=== PATIENT | male | born 1965 | race Caucasian/White ===

== ENCOUNTER 2017-09-30 19:01 | Emergency (ER) | payer OTHER ==
[2017-09-30] MEDS ORDERED: Ketorolac Tromethamine 30 MG/ML VIAL ONE (20:44)
[2017-09-30] MEDS ORDERED: predniSONE 20 MG TAB ONE (20:49)
== END 2017-09-30 21:15 | disposition home or self-care (01) ==
LOC: ERS 19:01
DX: K02.9 Dental caries, unspecified (principal); J44.9 Chronic obstructive pulmonary disease, unspecified; I10 Essential (primary) hypertension; G40.909 Epilepsy, unspecified, not intractable, without status epilepticus; F17.210 Nicotine dependence, cigarettes, uncomplicated; Z79.899 Other long term (current) drug therapy
CPT/HCPCS: 96372; 99406; J1885; J7506

== ENCOUNTER 2018-01-26 11:37 | Emergency (ER) | payer OTHER ==
--- NOTE | 2018-01-26 12:18 | RAD ---
PORTABLE CHEST 1 VIEW: Date: 01/26/18 Time: 1211 hours HISTORY: Chest pain. FINDINGS: Comparison made with exam of 08/27/17. The heart size is normal. The lungs are well expanded without focal areas of consolidation, pneumotho rax, or pleural effusions. IMPRESSION: No radiographic evidence of acute cardiopulmonary process. POS: [facility]
[2018-01-26 12:20] LABS: #Eosinphils 0.1 thou/uL (0.0-0.7); #Lymphocytes 1.2 thou/uL (1.20-3.40); #Monocytes 0.5 thou/uL (0.11-0.59); #Neutrophils 6.1 thou/uL (1.40-6.50); %Basophils 0.6 % (0.0-1.0); %Eosinophils 0.8 % (0.0-10.0); %Lymphocytes 15.6 % (21.0-51.0); %Monocytes 6.7 % (0.0-10.0); %Neutrophils 76.4 % (42.0-75.0); Hemoglobin 13.5 g/dL (14.0-18.0); Mean Corpuscular HGB CONC 33.4 g/dL (32.0-36.0); Mean Corpuscular Hemoglobin 33.8 pg (27.0-31.0); Mean Platelet Volume 7.3 fL (7.4-10.4); Platelet Count 311 thou/uL (130-400); RBC Distribution Width 14.1 % (11.5-14.5); Red Blood Cell (RBC) Count 4.01 mill/uL (4.70-6.10); White Blood Cell (WBC) Count 7.9 thou/uL (4.8-10.8)
[2018-01-26 12:45] LABS: ALT (SGPT) 12 U/L (8-55); AST (SGOT) 15 U/L (5-34); Albumin 3.9 g/dL (3.5-5.0); Alkaline Phosphatase 85 U/L (40-150); Anion Gap 13 mmol/L (10-20); BUN (Urea Nitrogen) 6 mg/dL (8.4-25.7); Bilirubin, Total 0.4 mg/dL (0.2-1.2); CK (CPK) 87 U/L (30-200); Calc. Creatinine Clearance 0 mL/min (70-130); Calcium 8.7 mg/dL (7.8-10.44); Carbon Dioxide 24 mmol/L (22-29); Chloride 103 mmol/L (98-107); Estimated GFR-MDRD Greater than 90; Globulin 2.3 g/dL (2.4-3.5); Glucose 108 mg/dL (70-105); Potassium 3.8 mmol/L (3.5-5.1); Protein, Total 6.2 g/dL (6.0-8.3); Sodium 136 mmol/L (136-145)
[2018-01-26 12:47] LABS: CKMB 2.2 ng/mL (0-6.6); Troponin I Less than 0.010 ng/mL (< 0.028)
[2018-01-26] MEDS ORDERED: methylPREDNISolone Sod Succ/PF 125 MG/2 ML VIAL ONE (15:24)
[2018-01-26 15:34] LABS: Troponin I Less than 0.010 ng/mL (< 0.028)
== END 2018-01-26 16:31 | disposition home or self-care (01) ==
LOC: ERS 11:37
DX: J44.9 Chronic obstructive pulmonary disease, unspecified (principal); I10 Essential (primary) hypertension; G40.909 Epilepsy, unspecified, not intractable, without status epilepticus; F32.9 Major depressive disorder, single episode, unspecified; F17.210 Nicotine dependence, cigarettes, uncomplicated; Z79.899 Other long term (current) drug therapy
CPT/HCPCS: 36415; 71045; 80053; 82553; 83880; 84484; 85025; 93005; 94640; 96374; J2930; J7620

== ENCOUNTER 2018-05-11 08:19 | Outpatient (CLI) | payer OTHER | END 2018-05-11 08:20 | disposition home or self-care (01) | LOC: CP 08:19 | PROVIDERS: ATTEND Internal Medicine | DX: J44.9 Chronic obstructive pulmonary disease, unspecified (principal) | CPT/HCPCS: 94060; 94727; 94729 ==

== ENCOUNTER 2018-06-06 13:53 | Emergency (ER) | payer OTHER ==
[2018-06-06 14:38] LABS: #Lymphocytes 0.7 thou/uL (1.20-3.40); #Monocytes 0.3 thou/uL (0.11-0.59); #Neutrophils 8.8 thou/uL (1.40-6.50); %Basophils 0.3 % (0.0-1.0); %Eosinophils 0.3 % (0.0-10.0); %Lymphocytes 7.3 % (21.0-51.0); %Monocytes 3.3 % (0.0-10.0); %Neutrophils 88.9 % (42.0-75.0); Hemoglobin 13.9 g/dL (14.0-18.0); Mean Corpuscular HGB CONC 32.9 g/dL (32.0-36.0); Mean Platelet Volume 7.6 fL (7.4-10.4); Platelet Count 274 thou/uL (130-400); RBC Distribution Width 14.2 % (11.5-14.5); Red Blood Cell (RBC) Count 4.22 mill/uL (4.70-6.10); White Blood Cell (WBC) Count 9.9 thou/uL (4.8-10.8)
[2018-06-06 15:00] LABS: ALT (SGPT) 16 U/L (8-55); AST (SGOT) 14 U/L (5-34); Albumin 4.3 g/dL (3.5-5.0); Alkaline Phosphatase 73 U/L (40-150); Anion Gap 14 mmol/L (10-20); BUN (Urea Nitrogen) 8 mg/dL (8.4-25.7); Bilirubin, Total 0.4 mg/dL (0.2-1.2); Calc. Creatinine Clearance 0 mL/min (70-130); Calcium 8.9 mg/dL (7.8-10.44); Carbon Dioxide 23 mmol/L (22-29); Chloride 106 mmol/L (98-107); Estimated GFR-MDRD Greater than 90; Globulin 2.8 g/dL (2.4-3.5); Glucose 114 mg/dL (70-105); Potassium 4.2 mmol/L (3.5-5.1); Protein, Total 7.1 g/dL (6.0-8.3); Sodium 139 mmol/L (136-145)
--- NOTE | 2018-06-06 15:20 | RAD ---
CHEST 2 VIEWS: Date: 06/06/18 HISTORY: Dyspnea. COPD. COMPARISON: 05/26/18. FINDINGS: Lungs are slightly hyperinflated. No focal air space consolidation, pneumothorax, or effusion. There appears to be a very small nodule in the right lung apex projecting over the anterior first rib, righ t, seen since 2016, likely a benign entity. No acute osseous abnormality. IMPRESSION: Lung hyperinflation suggesting obstructive pulmonary disease. POS: [facility]
[2018-06-06 15:45] LABS: CKMB 0.9 ng/mL (0-6.6); Troponin I Less than 0.010 ng/mL (< 0.028)
== END 2018-06-06 17:18 | disposition home or self-care (01) ==
LOC: ERS 13:53
DX: J44.1 Chronic obstructive pulmonary disease with (acute) exacerbation (principal); I10 Essential (primary) hypertension; F17.210 Nicotine dependence, cigarettes, uncomplicated; G40.909 Epilepsy, unspecified, not intractable, without status epilepticus; Z71.6 Tobacco abuse counseling; Z79.899 Other long term (current) drug therapy
CPT/HCPCS: 36415; 71046; 80053; 82553; 84484; 85025; 94640; 94760; 99406; J7620

== ENCOUNTER 2018-11-30 08:46 | Inpatient (IN) | payer OTHER ==
[2018-11-30 09:18] LABS: Hemoglobin 13.2 g/dL (14.0-18.0); Mean Corpuscular HGB CONC 32.4 g/dL (32.0-36.0); Mean Corpuscular Hemoglobin 32.1 pg (27.0-31.0); Mean Corpuscular Volume 99.1 fL (78.0-98.0); Mean Platelet Volume 7.9 fL (7.4-10.4); Platelet Count 238 thou/uL (130-400); RBC Distribution Width 14.4 % (11.5-14.5); Red Blood Cell (RBC) Count 4.12 mill/uL (4.70-6.10)
[2018-11-30 09:36] LABS: Band 15 % (5-11); Lymphocytes 3 % (21-51); MDiff Complete? YES; Monocytes 4 % (0-10); Neutrophil 78 % (42-75); Platelet Morphology Comment Appears Adequate; RBC Morphology Normal; Vacuoles SLIGHT
[2018-11-30] MEDS ORDERED: cefTRIAXone\\ROCEPHIN 2 GM VIAL ONE (09:37)
[2018-11-30 09:40] LABS: ALT (SGPT) 23 U/L (8-55); AST (SGOT) 17 U/L (5-34); Albumin 3.4 g/dL (3.5-5.0); Alkaline Phosphatase 64 U/L (40-150); Anion Gap 11 mmol/L (10-20); BUN (Urea Nitrogen) 19 mg/dL (8.4-25.7); Bilirubin, Total 0.5 mg/dL (0.2-1.2); Calc. Creatinine Clearance 0 mL/min (70-130); Calcium 8.1 mg/dL (7.8-10.44); Carbon Dioxide 25 mmol/L (22-29); Chloride 103 mmol/L (98-107); Estimated GFR-MDRD Greater than 90; Globulin 2.2 g/dL (2.4-3.5); Glucose 83 mg/dL (70-105); Potassium 4.5 mmol/L (3.5-5.1); Protein, Total 5.6 g/dL (6.0-8.3); Sodium 134 mmol/L (136-145)
--- NOTE | 2018-11-30 09:48 | RAD ---
SINGLE VIEW OF THE CHEST: Comparison: 01-26-18 History: COPD, emphysema. Shortness of breath. FINDINGS: Single view of the chest shows a normal sized cardiomediastinal silhouette. Increased interstitial ma rkings are present. There may be superimposed airspace opacities in the right costophrenic angle. Thi s could represent an infiltrate. No pleural effusion is seen. IMPRESSION: Right lower lobe infiltrate. POS: [facility]
[2018-11-30] MEDS ORDERED: Azithromycin 500 MG VIAL ONE (10:14)
[2018-11-30 10:54] LABS: Bilirubin Negative (Negative); Blood, Urine Negative (Negative); Clarity CLEAR (Clear); Glucose, Urine (Dipstick) Negative (Negative); Leukocyte Negative (Negative); Nitrite Negative (Negative); Protein, Urine (Dipstick) Negative (Neg-Trace); Specific Gravity, Urine 1.008 (1.002-1.036); Urobilinogen 0.2 mg/dL (0.2-1.0)
[2018-11-30] MEDS ORDERED: Guaifenesin DM 100-10/5 ML UDCUP PO PRN (12:40)
[2018-11-30] MEDS ORDERED: Senokot S 8.6-50 MG TAB PO PRN (12:40)
[2018-11-30] MEDS ORDERED: chlordiazePOXIDE HCl 25 MG CAP PO PRN (12:40)
--- NOTE | 2018-11-30 13:19 | HP ---
REASON FOR ADMISSION: Pneumonia, severe COPD exacerbation, sepsis. HISTORY OF PRESENTING ILLNESS: The patient gives history of waking up with shortness of breath and coughing spells this morning. This was not settling down and the patient finally called EMS and was brought here. On arrival, the patient has had a chest x-ray done, which shows pneumonia in the right lung. He was also wheezing and was given multiple nebulizations in the ER. The patient states he had subjective fever. He also uses oxygen when he ambulates at home. He sees Dr. Degroot for his COPD. Has cough with expectoration of yellow sputum off and on per patient. PAST MEDICAL AND SURGICAL HISTORY: COPD, history of prior brain surgery for aneurysm, seizure disorder. CURRENT MEDICATIONS: Librium 25 mg p.o. three times daily p.r.n., Dilantin 400 mg p.o. daily, albuterol nebulizer q.4 hourly p.r.n., and Anoro Ellipta inhaler. ALLERGIES: NO KNOWN DRUG ALLERGIES. PERSONAL HISTORY: Smokes half pack a day. Does not abuse alcohol or drugs. Denies substance abuse. Lives with his . FAMILY HISTORY: Mother at the age of 90 from advanced age and natural causes. Father at the age of 62. He of massive OR. Code status is full. Power of court magistrate is his . REVIEW OF SYSTEMS: CONSTITUTIONAL: Negative for weight loss or gain, ability to conduct usual activities. SKIN: Negative for rash, itching. EYES: Negative for double vision, pain. ENT/MOUTH: Negative for nose bleeding, neck stiffness, pain, tenderness. CARDIOVASCULAR: Negative for palpitations, dyspnea on exertion, orthopnea. RESPIRATORY: Negative for shortness of breath, wheezing, cough, hemoptysis, fever or night sweats. GASTROINTESTINAL: Negative for poor appetite, abdominal pain, heartburn, nausea , vomiting, constipation, or diarrhea. GENITOURINARY: Negative for urgency, frequency, dysuria, nocturia. MUSCULOSKELETAL: Negative for pain, swelling. NEUROLOGIC/PSYCHIATRIC: Negative for anxiety, depression. ALLERGY/IMMUNOLOGIC: Negative for skin rash, bleeding tendency. PHYSICAL EXAMINATION: GENERAL: The patient is a 52-year-old male, who is currently not in any acute distress. VITAL SIGNS: Blood pressure 128/70, pulse 110 per minute, respiratory rate 24 per minute, temperature 98.8 degrees Fahrenheit, saturating 95% on room air. NECK: Supple. No elevated JVD. HEENT: Eyes; extraocular muscles intact. Pupils are reacting to light. Oral cavity, mucous membranes are dry. No exudates or congestion. CARDIOVASCULAR: S1 and S2 heard. Regular rhythm. RESPIRATORY: Air entry 1+ bilateral. Scattered wheezes plus bilateral. ABDOMEN: Soft. Bowel sounds heard. No tenderness, rigidity, or guarding. EXTREMITIES: No peripheral edema or calf tenderness. VASCULAR: Peripheral pulses 1+ bilateral. No ischemic ulcerations or gangrene. CENTRAL NERVOUS SYSTEM: No gross focal deficits noted. The patient is alert, awake, and oriented well. PSYCHIATRIC: The patient's mood is euthymic. No hallucinations or delusions. DIAGNOSTIC DATA: EKG done shows sinus tach at 125 beats per minute. There is poor R-wave progression. Chest x-ray done shows questionable right lower lobe infiltrate. LABORATORY DATA: UA is negative for any infection. Electrolytes are stable. BUN 19, creatinine 0.8. Lactic acid 2.1. Liver enzymes within normal limits. Albumin is 3.4. White count of 20, H and H are 13 and 40, MCV is 99 with a platelet count of 238, 78% neutrophils, and 15% bands. CLINICAL IMPRESSION AND PLAN: The patient will be admitted to medical floor for sepsis, pneumonia, chronic obstructive pulmonary exacerbation. He will be on Levaquin and DuoNeb's. We will gently hydrate him with normal saline at 100 mL/ h. We will continue his Spiriva inhaler along with lisinopril, Dilantin, Librium as before. We will consult his rn labor and delivery, Dr. Degroot. Blood cultures have been obtained in the ER, and we will obtain sputum cultures if he can provide one. Code status was discussed with him and he is full code. Job ID: [id number] [facility]
[2018-11-30 13:51] VITALS: BMI 19.3
[2018-11-30] MEDS: Sodium Chloride 0.9% 1,000 ML IV SCH (14:29)
[2018-11-30] MEDS: Oseltamivir 75 MG CAP PO SCH ×3 (16:22→20:21)
[2018-11-30] MEDS: Acetaminophen 325 MG TAB PO PRN (17:25)
[2018-11-30] MEDS: guaiFENesin ER 600 MG TAB PO SCH (20:20)
[2018-11-30] MEDS: Famotidine 20 MG TAB PO SCH (20:20)
--- NOTE | 2018-11-30 23:05 | CON ---
DATE OF CONSULTATION: 11/30/2018 SERVICE: Pulmonary Medicine. REASON FOR CONSULT: Respiratory failure. HISTORY OF PRESENT ILLNESS: The patient is a 52-year-old white male with past medical history significant for profound COPD. He was in his usual state of health until he started having cough, congestion, fevers and chills of one and half days' duration. He denies any sick contacts. He is bringing up yellow phlegm, which is much worse than usual. He has been working to decrease the amount he is smoking. A pack has lasted him a little over a week at this point. He uses oxygen with ambulation. Otherwise, there has been no interval change to his condition. He presented to the emergency department where he was identified as having a pneumonia. He actually is starting to feel a little bit better since presentation. PAST MEDICAL HISTORY: 1. COPD. 2. Seizure disorder. PAST SURGICAL HISTORY: Brain surgery for aneurysm repair. ALLERGIES: NO KNOWN DRUG ALLERGIES. MEDICATIONS: List of his inpatient medications was reviewed. Multiple updates were made. FAMILY HISTORY: Noncontributory. SOCIAL HISTORY: He continues to smoke a little bit. He has a greater than 40 pack year history of smoking. He is down to less than one pack per week. He denies any alcohol or illicit drug use. He has a history of polysubstance drug abuse, but has not used anything recently. He currently lives with his , but has no exposure to chemicals, dust, asbestos, or tuberculosis. REVIEW OF SYSTEMS: GENERAL: Head ears, eyes, nose, throat, cardiovascular, respiratory, GI, , musculoskeletal, neurologic, and skin are negative except as mentioned in the HPI. PHYSICAL EXAMINATION: VITAL SIGNS: Afebrile, pulse 107, blood pressure 91/53, respirations 18, saturation 96% on room air. GENERAL: The patient is awake and alert, in no apparent distress. LUNGS: Decreased air entry with a prolonged expiratory phase. Rhonchi, wheezing, and crackles are all present. HEART: Normal rate. Regular. ABDOMEN: Soft, nontender, and nondistended. Bowel sounds are positive. MUSCULOSKELETAL: No cyanosis or clubbing. EXTREMITIES: There is no pitting in the bilateral lower extremities. NEUROLOGIC: Grossly nonfocal. LABORATORY DATA: WBC 20.0, hemoglobin 13.1, platelets 238,000, band count 15% on top of 78% bands. Basic metabolic profile and liver function studies otherwise unremarkable. Lactate is unremarkable. Urinalysis is negative, influenza A is positive. ASSESSMENT: 1. [id number] hypoxic respiratory failure. 2. Chronic obstructive pulmonary disease with acute exacerbation. 3. Community-acquired pneumonia secondary to influenza A. DISCUSSION AND PLAN: We will give the patient steroids, nebulized medications, and antibiotics. I will add Tamiflu, because his recent nasal swab was positive for influenza A. We will move him off the Oncology floor, so that he does not expose the people in the hallway due to his highly contagious virus. We will initiate contact precautions. Pulmonary Critical Care will continue to follow along, but from my perspective, he is stable for transition out of the hospital in 24 to 48 hours. 70 minutes have been devoted to this patient in various activities. I personally reviewed all imaging studies and laboratory data noted within this document. For fifty percent of this time, I was interacting with the patient at the bedside or coordinating care with the care team. For the remainder of the time I was immediately available to the patient in the hospital unit. Job ID: [id number] [facility]
[2018-12-01 07:44] LABS: #Lymphocytes 1.5 thou/uL (1.20-3.40); #Monocytes 0.7 thou/uL (0.11-0.59); %Basophils 0.1 % (0.0-1.0); %Eosinophils 0.1 % (0.0-10.0); %Lymphocytes 9.6 % (21.0-51.0); %Monocytes 4.8 % (0.0-10.0); %Neutrophils 85.5 % (42.0-75.0); Hemoglobin 10.3 g/dL (14.0-18.0); Mean Corpuscular Hemoglobin 33.4 pg (27.0-31.0); Mean Platelet Volume 8.5 fL (7.4-10.4); Platelet Count 181 thou/uL (130-400); RBC Distribution Width 14.7 % (11.5-14.5); Red Blood Cell (RBC) Count 3.08 mill/uL (4.70-6.10); White Blood Cell (WBC) Count 15.2 thou/uL (4.8-10.8)
[2018-12-01 07:49] LABS: Anion Gap 10 mmol/L (10-20); BUN (Urea Nitrogen) 13 mg/dL (8.4-25.7); Calc. Creatinine Clearance 101 mL/min (70-130); Calcium 7.8 mg/dL (7.8-10.44); Carbon Dioxide 22 mmol/L (22-29); Chloride 108 mmol/L (98-107); Estimated GFR-MDRD Greater than 90; Glucose 111 mg/dL (70-105); Sodium 136 mmol/L (136-145)
[2018-12-01] MEDS: Oseltamivir 75 MG CAP PO SCH ×2 (08:52→20:49)
[2018-12-01] MEDS: guaiFENesin ER 600 MG TAB PO SCH ×2 (08:52→20:49)
[2018-12-01] MEDS: Famotidine 20 MG TAB PO SCH ×2 (08:52→20:49)
[2018-12-01] MEDS: Enoxaparin Sodium 40 MG/0.4 ML SYRINGE SC SCH (08:56)
[2018-12-01] MEDS ORDERED: Lisinopril 20 MG TAB PO SCH (09:00)
[2018-12-01] MEDS ORDERED: Spiriva 18 MCG CAP (Box of 5 Caps) INH SCH (09:00)
[2018-12-01] MEDS: Sodium Chloride 0.9% 1,000 ML IV SCH ×3 (10:36→13:57)
--- NOTE | 2018-12-01 14:04 | PRG ---
DATE OF SERVICE: 12/01/2018 SERVICE: Pulmonary Medicine. INTERVAL HISTORY: The patient is doing fine from respiratory standpoint. Denies any current chest pain, fevers, or chills. He is coughing. He is bringing up a little bit of white pale yellow sputum. Otherwise, there has been no interval change to his condition. He feels like his breathing is opening up a little bit. PHYSICAL EXAMINATION: VITAL SIGNS: Afebrile, pulse 93, blood pressure 100/56, respirations 18, and saturation 96% on 2 L nasal cannula. GENERAL: The patient is awake and alert, in no apparent distress. LUNGS: Improved air entry. Rhonchi and wheezing are present. No crackles are appreciated. HEART: Normal rate and regular. ABDOMEN: Soft, nontender, and nondistended. Bowel sounds are positive. MUSCULOSKELETAL: No cyanosis or clubbing. No pitting in the bilateral lower extremities. NEUROLOGIC: Grossly nonfocal. LABORATORY DATA: WBC 15.2, hemoglobin 10.3, platelets 181,000 and stable. Basic metabolic profile is essentially unremarkable. Creatinine is downtrending to 0.74, lactate is normal. Urinalysis is essentially unremarkable. Respiratory culture is negative to-date. Urine culture and blood culture x2 are unremarkable. Influenza A is positive. ASSESSMENT: 1. Acute on chronic hypoxic respiratory failure. 2. Chronic obstructive pulmonary disease with acute exacerbation. 3. Community-acquired pneumonia secondary to influenza. 4. Sputum is positive for gram-positive cocci in pairs, chains, and clusters, final culture pending. DISCUSSION AND PLAN: We will continue our empiric antibiotics. He will remain in the ICU for at least an additional 24 hours. Pulmonary/Critical Care will continue to follow along while supportive measures including antibiotics, steroids, and nebulized medication will be continued. He is asking me for some pain medications, which I have declined to give him for his chronic discomforts. Job ID: [id number]
[2018-12-01] MEDS: Acetaminophen 325 MG TAB PO PRN ×2 (16:29→20:49)
--- NOTE | 2018-12-01 17:51 | PDOC.PN ---
- Subjective Encounter Start Date: 12/01/18 Encounter Start Time: 10:00 Subjective: pt up in bed no complains - Objective Resuscitation Status - Order Detail: 11/30/18 12:37 Resuscitation Status Routine Resuscitation Status: FULL: Full Resuscitation Vital Signs & Weight: Vital Signs (12 hours) Temp Pulse Resp BP BP Pulse Ox 12/01/18 15:22 98.4 F 100 18 130/60 97 12/01/18 12:05 110/68 12/01/18 11:29 95 14 96 12/01/18 11:16 97.9 F 93 18 100/56 L 98 12/01/18 08:54 95/58 L 12/01/18 08:22 97.5 F L 99 18 126/59 L 98 12/01/18 08:05 95 12/01/18 06:53 92 16 96 Weight Weight 138 lb 3.2 oz I&O: 11/30/18 12/01/18 12/02/18 06:59 06:59 06:59 Intake Total 3660 Output Total 2075 Balance 1585 Result Diagrams: 12/01/18 06:37 12/01/18 06:37 Phys Exam - Physical Examination Neck: no nodes, no JVD, supple, full ROM mild rhonchi all over Cardiovascular: RRR, no significant murmur, no rub, gallop, irregular Gastrointestinal: soft, non-tender, no distention, positive bowel sounds Dx/Plan (1) CAP (community acquired pneumonia) Code(s): J18.9 - PNEUMONIA, UNSPECIFIED ORGANISM Status: Acute (2) Influenza A Code(s): J10.1 - FLU DUE TO OTH IDENT INFLUENZA VIRUS W OTH RESP MANIFEST Status: Acute (3) COPD exacerbation Code(s): J44.1 - CHRONIC OBSTRUCTIVE PULMONARY DISEASE W (ACUTE) EXACERBATION Status: Acute (4) HTN (hypertension) Code(s): I10 - ESSENTIAL (PRIMARY) HYPERTENSION Status: Chronic - Plan will continue abx for now -: pt encouraged to ambulate -: wbc improving * . Review of Systems - Review of Systems Respiratory: negative: Cough, Dry, Shortness of Breath, Hemoptysis, SOB with Excertion, Pleuritic Pain, Sputum, Wheezing Cardiovascular: negative: chest pain, palpitations, orthopnea, paroxysmal nocturnal dyspnea, edema, light headedness, other Gastrointestinal: negative: Nausea, Vomiting, Abdominal Pain, Diarrhea, Constipation, Melena, Hematochezia, Other Genitourinary: negative: Dysuria, Frequency, Incontinence, Hematuria, Retention , Other - Medications/Allergies Allergies/Adverse Reactions: Allergies Allergy/AdvReac Type Severity Reaction Status Date / Time codeine AdvReac GI Verified 11/30/18 15:16 Medications: Current Medications Acetaminophen (Tylenol) 650 mg PO Q4H PRN PRN Reason: Headache/Fever/Mild Pain (1-3) Last Admin: 12/01/18 16:29 Dose: 650 mg Albuterol/Ipratropium (Duoneb) 3 ml NEB [id number] [facility] Last Admin: 12/01/18 11:29 Dose: 3 ml Chlordiazepoxide HCl (Librium) 25 mg PO TID PRN PRN Reason: Agitation Enoxaparin Sodium (Lovenox) 40 mg SC 0900 [facility] Last Admin: 12/01/18 08:56 Dose: 40 mg Famotidine (Pepcid) 20 mg PO BID [facility] Last Admin: 12/01/18 08:52 Dose: 20 mg Guaifenesin (Mucinex) 600 mg PO Q12HR [facility] Last Admin: 12/01/18 08:52 Dose: 600 mg Levofloxacin 500 mg/ Device 100 mls @ 100 mls/hr IVPB 1400 [facility] Last Admin: 12/01/18 13:54 Dose: 100 mls Influenza Virus Vaccine Quadrival (Fluzone Quad [id number] Syringe) 0.5 ml IM .ONCE ONE Stop: 12/02/18 09:01 Lisinopril (Zestril) 20 mg PO DAILY [facility] Oseltamivir Phosphate (Tamiflu) 75 mg PO BID [facility] Stop: 12/04/18 21:01 Last Admin: 12/01/18 08:52 Dose: 75 mg Phenytoin Sodium (Dilantin Er) 400 mg PO DAILY [facility] Last Admin: 12/01/18 08:54 Dose: Not Given Pneumococcal Polyvalent Vaccine (Pneumovax 23) 0.5 ml IM .ONCE ONE Stop: 12/02/18 09:01 Senna/Docusate Sodium (Senokot S) 2 tab PO BID PRN PRN Reason: Constipation
[2018-12-02] MEDS: Acetaminophen 325 MG TAB PO PRN ×2 (01:10→05:48)
[2018-12-02 07:35] LABS: #Lymphocytes 1.1 thou/uL (1.20-3.40); #Monocytes 0.7 thou/uL (0.11-0.59); %Basophils 0.3 % (0.0-1.0); %Eosinophils 0.4 % (0.0-10.0); %Lymphocytes 12.5 % (21.0-51.0); %Monocytes 7.9 % (0.0-10.0); %Neutrophils 78.9 % (42.0-75.0); Mean Corpuscular HGB CONC 32.4 g/dL (32.0-36.0); Mean Corpuscular Hemoglobin 33.5 pg (27.0-31.0); Mean Platelet Volume 8.2 fL (7.4-10.4); Platelet Count 167 thou/uL (130-400); RBC Distribution Width 14.6 % (11.5-14.5); Red Blood Cell (RBC) Count 3.29 mill/uL (4.70-6.10); White Blood Cell (WBC) Count 8.9 thou/uL (4.8-10.8)
[2018-12-02 07:42] VITALS: BP 130/60; TEMP 98.9
[2018-12-02] MEDS: Oseltamivir 75 MG CAP PO SCH (08:42)
[2018-12-02] MEDS: guaiFENesin ER 600 MG TAB PO SCH (08:43)
[2018-12-02] MEDS: Enoxaparin Sodium 40 MG/0.4 ML SYRINGE SC SCH (08:43)
[2018-12-02] MEDS: Famotidine 20 MG TAB PO SCH (08:43)
[2018-12-02] MEDS ORDERED: Lisinopril 20 MG TAB PO SCH (09:00)
--- NOTE | 2018-12-02 15:03 | PRG ---
DATE OF SERVICE: 12/02/2018 SERVICE: Pulmonary Medicine. INTERVAL HISTORY: The patient actually feels like he is back to his baseline. He had a little episode of night sweats last night. He did not have any current fevers, chills, nausea, or vomiting. His cough is back to baseline. He has been able to walk without oxygen up and down the hallway without difficulties. PHYSICAL EXAMINATION: VITAL SIGNS: Afebrile, pulse 98, blood pressure 130/60, respirations 18, and saturation 98% on room air. GENERAL: The patient is awake and alert, in no apparent distress. LUNGS: There is a reduced air entry with a prolonged expiratory phase. Minimal rhonchi are present. I do not appreciate crackles or wheezing. HEART: Normal rate, regular. ABDOMEN: Soft, nontender, and nondistended. Bowel sounds are positive. MUSCULOSKELETAL: No cyanosis or clubbing. There is no pitting in the bilateral lower extremities. NEUROLOGIC: Grossly nonfocal. LABORATORY DATA: WBC 8.9, hemoglobin 11.0, platelets 167,000. Sputum is growing strep pneumonia. Influenza A is positive on the swab. Urine culture, blood culture x2 are unremarkable. ASSESSMENT: 1. Acute on chronic hypoxic respiratory failure. 2. Chronic obstructive pulmonary disease with acute exacerbation. 3. Community-acquired pneumonia secondary to Streptococcus, and influenza. DISCUSSION AND PLAN: He will need seven days of antibiotic, and a 5-day course of Tamiflu. He will also need 5 days of steroids. He will continue his home inhalers on discharge from the hospital. I have counseled him to use his home nebulizer and/or HFA on an as needed basis. He will return to the emergency department if he has increasing respiratory difficulties, but at this point, he feels safe going home. Job ID: [id number] [facility]
--- NOTE | 2018-12-03 04:45 | DIS ---
DATE OF ADMISSION: 11/30/2018 DATE OF DISCHARGE: 12/02/2018 DISCHARGE DIAGNOSES: 1. Community-acquired pneumonia from streptococcus pneumoniae, culture indicated. 2. Influenza A. 3. Chronic obstructive pulmonary disease exacerbation. 4. Hypertension. HOSPITAL COURSE: The patient is a very pleasant 52-year-old male who came into the hospital with complaints of shortness of breath. He was found on x-ray to have a right lower lobe pneumonia. The patient did have a sputum culture, which was positive for presumptive strep pneumoniae. Influenza A also was positive. He was put on Tamiflu, he received 4 doses of Tamiflu. The patient will be discharged home today. He is feeling much better, moving around. He is on home O2. DISCHARGE MEDICATIONS: 1. Will be as the following. Levofloxacin 750 mg daily for 10 days. 2. Ipratropium or DuoNeb 3 mL q.6 hours. 3. Mucinex 600 mg b.i.d. 4. Lisinopril 20 mg daily. 5. Dilantin 400 mg daily. 6. Librium 25 mg t.i.d. p.r.n., this is his home medication. 7. I will also give him a Medrol Dosepak. PHYSICAL EXAMINATION: VITAL SIGNS: Temperature of 98.9, 98, 18, 98% on room air, and blood pressure 133/60. GENERAL: He is awake, alert, and oriented x3. Does not appear in distress. CV: S1, S2 present. No murmurs, rubs, or gallops. ABDOMEN: Soft and nontender. Bowel sounds present. EXTREMITIES: No edema. Pedal pulses present x2. FOLLOWUP: He needs to follow up with Dr. Degroot in 2 to 3 weeks and he will require a repeat chest x-ray in 6 weeks. The patient has been notified about this. Job ID: [id number]
== END 2018-12-02 12:35 | disposition home or self-care (01) | DRG 871 ==
LOC: ERS 08:46 → ERHOLD 11:15 → ONC 13:49 → SURG A 16:37
PROVIDERS: ADMIT Internal Medicine; ATTEND Internal Medicine
DX: A41.9 Sepsis, unspecified organism (principal); J96.21 Acute and chronic respiratory failure with hypoxia; J10.08 Influenza due to other identified influenza virus with other specified pneumonia; J13 Pneumonia due to Streptococcus pneumoniae; J44.0 Chronic obstructive pulmonary disease with (acute) lower respiratory infection; J44.1 Chronic obstructive pulmonary disease with (acute) exacerbation; I10 Essential (primary) hypertension; G40.909 Epilepsy, unspecified, not intractable, without status epilepticus; F17.210 Nicotine dependence, cigarettes, uncomplicated
CPT/HCPCS: 36415; 71045; 80048; 80053; 81003; 83605; 85025; 87040; 87070; 87077; 87086; 87205; 87804; 93005; 94640; 96361; 96365; 96367; J0456; J0696; J1650; J1956; J7620

== ENCOUNTER 2018-12-20 09:51 | Emergency (ER) | payer OTHER ==
[2018-12-20 10:24] LABS: #Lymphocytes 1.8 thou/uL (1.20-3.40); #Monocytes 0.7 thou/uL (0.11-0.59); #Neutrophils 3.4 thou/uL (1.40-6.50); %Basophils 0.7 % (0.0-1.0); %Eosinophils 0.7 % (0.0-10.0); %Lymphocytes 30.5 % (21.0-51.0); %Monocytes 11.2 % (0.0-10.0); Mean Corpuscular HGB CONC 32.7 g/dL (32.0-36.0); Mean Corpuscular Hemoglobin 32.6 pg (27.0-31.0); Mean Corpuscular Volume 99.6 fL (78.0-98.0); Mean Platelet Volume 7.4 fL (7.4-10.4); Platelet Count 364 thou/uL (130-400); Red Blood Cell (RBC) Count 3.98 mill/uL (4.70-6.10)
[2018-12-20 10:43] LABS: ALT (SGPT) 10 U/L (8-55); AST (SGOT) 12 U/L (5-34); Albumin 3.9 g/dL (3.5-5.0); Alkaline Phosphatase 88 U/L (40-150); Anion Gap 11 mmol/L (10-20); BUN (Urea Nitrogen) 10 mg/dL (8.4-25.7); Bilirubin, Total 0.3 mg/dL (0.2-1.2); Calc. Creatinine Clearance 0 mL/min (70-130); Calcium 9.2 mg/dL (7.8-10.44); Carbon Dioxide 27 mmol/L (22-29); Chloride 102 mmol/L (98-107); Estimated GFR-MDRD Greater than 90; Globulin 2.6 g/dL (2.4-3.5); Glucose 90 mg/dL (70-105); Potassium 4.3 mmol/L (3.5-5.1); Protein, Total 6.5 g/dL (6.0-8.3); Sodium 136 mmol/L (136-145)
--- NOTE | 2018-12-20 11:00 | RAD ---
SINGLE VIEW OF THE CHEST: COMPARISON: 11/30/2018. HISTORY: Recently diagnosed with pneumonia with dyspnea. FINDINGS: A single view of the chest shows a normal-size cardiomediastinal silhouette with atherosclerotic calc ifications in the aorta. Hyperexpansion of the lungs may be secondary to COPD. There is no evidence of consolidation, mass, or pleural effusion. IMPRESSION: No evidence of acute cardiopulmonary disease. POS: [facility]
[2018-12-20] MEDS ORDERED: methylPREDNISolone Sod Succ/PF 125 MG/2 ML VIAL ONE (11:06)
== END 2018-12-20 12:03 | disposition home or self-care (01) ==
LOC: ERS 09:51
DX: J44.1 Chronic obstructive pulmonary disease with (acute) exacerbation (principal); I10 Essential (primary) hypertension; G40.909 Epilepsy, unspecified, not intractable, without status epilepticus; F17.220 Nicotine dependence, chewing tobacco, uncomplicated; F17.210 Nicotine dependence, cigarettes, uncomplicated; Z79.899 Other long term (current) drug therapy; Z79.51 Long term (current) use of inhaled steroids
CPT/HCPCS: 36415; 71045; 80053; 85025; 93005; 94640; 96374; J2930; J7620

== ENCOUNTER 2019-03-12 20:35 | Inpatient (IN) | payer OTHER ==
[2019-03-12] MEDS ORDERED: Magnesium 2 GM/50 ML BAG (IN WATER) ONE (20:49)
[2019-03-12] MEDS ORDERED: Lorazepam 2 MG/ML VIAL ONE ×2 (20:49→21:38)
[2019-03-12] MEDS ORDERED: Albuterol Sulfate 2.5 mg/3 ml Neb ONE (21:03)
[2019-03-12] MEDS ORDERED: Albuterol Sulfate 2.5 mg/0.5 ml Neb ONE (21:03)
[2019-03-12 21:12] LABS: #Monocytes 0.5 thou/uL (0.11-0.59); #Neutrophils 6.4 thou/uL (1.40-6.50); %Basophils 0.1 % (0.0-1.0); %Eosinophils 0.1 % (0.0-10.0); %Lymphocytes 12.4 % (21.0-51.0); %Monocytes 6.2 % (0.0-10.0); %Neutrophils 81.2 % (42.0-75.0); Hemoglobin 11.3 g/dL (14.0-18.0); Mean Corpuscular HGB CONC 32.2 g/dL (32.0-36.0); Mean Corpuscular Hemoglobin 32.3 pg (27.0-31.0); Mean Platelet Volume 7.6 fL (7.4-10.4); Platelet Count 251 thou/uL (130-400); RBC Distribution Width 13.7 % (11.5-14.5); White Blood Cell (WBC) Count 7.8 thou/uL (4.8-10.8)
[2019-03-12 21:32] LABS: ALT (SGPT) 15 U/L (8-55); AST (SGOT) 13 U/L (5-34); Alkaline Phosphatase 84 U/L (40-150); Anion Gap 13 mmol/L (10-20); BUN (Urea Nitrogen) 5 mg/dL (8.4-25.7); Bilirubin, Total 0.2 mg/dL (0.2-1.2); Calc. Creatinine Clearance 0 mL/min (70-130); Calcium 8.3 mg/dL (7.8-10.44); Carbon Dioxide 29 mmol/L (22-29); Chloride 103 mmol/L (98-107); Estimated GFR-MDRD Greater than 90; Globulin 2.2 g/dL (2.4-3.5); Glucose 121 mg/dL (70-105); Magnesium 2.1 mg/dL (1.6-2.6); Protein, Total 6.2 g/dL (6.0-8.3); Sodium 141 mmol/L (136-145)
[2019-03-12 21:41] LABS: Bilirubin Negative (Negative); Blood, Urine Negative (Negative); Clarity CLEAR (Clear); Glucose, Urine (Dipstick) Negative (Negative); Leukocyte Negative (Negative); Nitrite Negative (Negative); Protein, Urine (Dipstick) Negative (Neg-Trace); Specific Gravity, Urine 1.015 (1.002-1.036); Urobilinogen 0.2 mg/dL (0.2-1.0); pH, Urine 6.5 (5.0-9.0)
--- NOTE | 2019-03-12 21:50 | RAD ---
PORTABLE CHEST: Indications: Chest pain, shortness of breath. Comparison: 12-20-18 FINDINGS: The lungs are clear. No infiltrate or vascular congestion seen. Heart size normal. IMPRESSION: No acute process or interval change. POS: [facility]
[2019-03-12] MEDS ORDERED: Ondansetron PF 4 MG/2 ML Vial IVP PRN (22:15)
[2019-03-12] MEDS ORDERED: Ondansetron ODT 4 MG TAB PO PRN (22:15)
[2019-03-12] MEDS ORDERED: Acetaminophen 325 MG TAB PO PRN (22:15)
[2019-03-12] MEDS ORDERED: Bacteriostatic Water 30 ML VIAL FS PRN (22:35)
[2019-03-12] MEDS: methylPREDNISolone Sod Succ 40 MG VIAL IVP SCH (23:59)
[2019-03-13 00:07] LABS: Amphetamine Not Detected (NotDetected); Benzodiazepine Screen Detected (NotDetected); Cocaine Metabolite Screen Not Detected (NotDetected); Medtox Reader # READER 4; Methadone Not Detected (NotDetected); Methamphetamine Not Detected (NotDetected); Opiate Screen Detected (NotDetected); Phencyclidine (PCP) Not Detected (NotDetected); THC/Cannabinoid Screen Not Detected (NotDetected); Tricyclic Screen Not Detected (NotDetected)
[2019-03-13 00:08] LABS: Barbiturates Screen Detected (NotDetected); Medtox Control Line Valid? VALID (VALID); Oxycodone Screen Not Detected (NotDetected)
[2019-03-13] MEDS ORDERED: PROVENTIL INHALER 6.7 G (200 INHALATIONS) INH PRN (01:45)
[2019-03-13] MEDS ORDERED: Lorazepam 2 MG/ML VIAL SLOW IVP PRN (01:58)
--- NOTE | 2019-03-13 02:53 | HP ---
PRIMARY CARE DOCTOR: Out of town physician. CODE STATUS: Full code. TIME OF EVALUATION: 2220 hours. CHIEF COMPLAINT: Shortness of breath. HISTORY OF PRESENT ILLNESS: This is a 53-year-old male patient with past medical history of COPD, frequent flier to different hospitals, the patient is noncompliant, came to the hospital after having acute gradually worsening severe shortness of breath. The patient reported that he had presented to the [facility] for COPD exacerbation and had been discharged to home. He had some DuoNebs at home, however, was not getting better. The patient also complained of some chest pain associated to his symptoms. REVIEW OF SYSTEMS: CONSTITUTIONAL: No fever, chills, or generalized weakness. RESPIRATORY: Cough, scant sputum production, and shortness of breath as described in HPI. CARDIOVASCULAR: No chest pain or palpitation. GASTROINTESTINAL: No nausea. No vomiting, diarrhea, or abdominal pain. [employer]: No dizziness, headache, or feeling lightheaded. GENITOURINARY: No burning on urination. EXTREMITIES: No leg swelling. All other systems were reviewed and negative except for the findings as mentioned above. PAST MEDICAL HISTORY: Positive for hypertension, epilepsy, history of brain aneurysm repair, COPD, and pneumonia. FAMILY HISTORY: Reviewed and non contributory to current presentation. PAST SURGICAL HISTORY: Brain surgery, aneurysm repair, and colonoscopy. PSYCHIATRIC HISTORY: No previous psych history. SOCIAL HISTORY: The patient smokes on a daily basis, half a pack per day. Former drinker. Lives at home with family. KNOWN ALLERGIES: No known drug allergies reported. MEDICATIONS: 1. Lisinopril. 2. Phenytoin. 3. Anoro Ellipta. 4. DuoNeb. 5. Albuterol. 6. Prednisone. 7. Chlordiazepoxide. PHYSICAL EXAMINATION: VITAL SIGNS: On presentation, blood pressure 112/73 with heart rate of 120, respiratory rate was 28, labored, with temperature 99.2. GENERAL APPEARANCE: The patient is alert, still in mild distress, on BiPAP, unable to speak with full sentences. HEENT: Eyes, normal conjunctivae. Moist oral mucosa. Anicteric. RESPIRATORY: Bilateral air entry decreased with scattered wheezing. No rales. Symmetric expansion is decreased. CARDIOVASCULAR: The patient is tachycardic. Regular rhythm. No murmurs. No gallop. No edema. ABDOMEN: Soft. Normal bowel sounds. MUSCULOSKELETAL: Baseline range of motion and strength. No tenderness. SKIN: Warm, intact. No pallor. No rash. No redness. Peripheral pulses are present. Capillary refill seems to be intact. NEUROLOGIC: No evidence of any new focal weakness. Baseline speech. Cranial nerves seem to be intact. PSYCH: The patient is in good mood. No anxiety. Optimal judgment. DIAGNOSTIC STUDIES: EKG was reviewed; the patient has sinus tachycardia at the rate of 121 with no other significant findings. Chest x-ray was reviewed; the patient has no acute process or interval change. LABORATORY DATA: Reviewed. The patient has white count 7.9, hemoglobin 11.3, MCV 100, and platelet count 251. Coagulations 0.27. Chemistry; sodium 141, potassium 4.0, chloride 103, carbon dioxide 29, anion gap 13, BUN 5, creatinine 0.7, GFR greater than 90, glucose 121, calcium 9.3, magnesium 2.1, total bilirubin 0.2, AST 13, ALT 15. Troponin was negative. Beta natriuretic peptide 120.4, albumin 4.0 , and globulin 2.2. Urine was done, was negative and toxicology was positive for opiates, barbiturates, and benzodiazepines. ASSESSMENT AND PLAN: The patient will be placed in the hospital with following medical problems: 1. Acute hypoxic respiratory failure, secondary to chronic obstructive pulmonary disease exacerbation. The patient is on BiPAP, has improved. We will place him in IMCU. We will treat underlying condition. 2. Chronic obstructive pulmonary disease exacerbation, acute on chronic. The patient is on BiPAP due to severe exacerbation, getting DuoNebs, antibiotics, and nebulizers, also had some magnesium upstairs. Consult Pulmonology for recommendations. 3. Chronic macrocytic anemia, this is chronic, we will monitor hemoglobin, no need for any acute intervention at this point. 4. Hyperglycemia. The patient has no history of diabetes. This could be secondary to acute distress or poor oral glucose tolerance. We will monitor, no need for any acute intervention at this point. 5. History of epilepsy reported. Reconcile home medications once updated. 6. Controlled hypertension. Reconcile home medications. Adjust as needed. 7. Deep venous thrombosis prophylaxis. Job ID: [id number] [facility]
[2019-03-13 05:16] VITALS: BMI 19.0
[2019-03-13 05:34] LABS: #Lymphocytes 0.6 thou/uL (1.20-3.40); #Monocytes 0.3 thou/uL (0.11-0.59); #Neutrophils 4.4 thou/uL (1.40-6.50); %Basophils 0.2 % (0.0-1.0); %Eosinophils 0.1 % (0.0-10.0); %Lymphocytes 11.4 % (21.0-51.0); %Monocytes 5.6 % (0.0-10.0); %Neutrophils 82.8 % (42.0-75.0); Hemoglobin 11.2 g/dL (14.0-18.0); Mean Corpuscular HGB CONC 31.6 g/dL (32.0-36.0); Mean Corpuscular Hemoglobin 32.3 pg (27.0-31.0); Mean Platelet Volume 7.5 fL (7.4-10.4); Platelet Count 277 thou/uL (130-400); RBC Distribution Width 13.9 % (11.5-14.5); Red Blood Cell (RBC) Count 3.47 mill/uL (4.70-6.10); White Blood Cell (WBC) Count 5.3 thou/uL (4.8-10.8)
[2019-03-13 05:52] LABS: Anion Gap 13 mmol/L (10-20); BUN (Urea Nitrogen) 5 mg/dL (8.4-25.7); Calc. Creatinine Clearance 98 mL/min (70-130); Calcium 8.6 mg/dL (7.8-10.44); Carbon Dioxide 26 mmol/L (22-29); Chloride 103 mmol/L (98-107); Estimated GFR-MDRD Greater than 90; Glucose 130 mg/dL (70-105); Potassium 4.4 mmol/L (3.5-5.1); Sodium 138 mmol/L (136-145)
[2019-03-13] MEDS: methylPREDNISolone Sod Succ 40 MG VIAL IVP SCH ×3 (06:05→17:59)
--- NOTE | 2019-03-13 08:35 | PDOC.PN ---
- Subjective Encounter Start Date: 03/13/19 Encounter Start Time: 11:50 Subjective: Patient feeling better now, doesn't want to go through another severe -: exacerbation at home. Feels tired of fighting this COPD and ready to move -: to hospice. Recently lost close friend (like a brother) to [place] while driving - Objective Resuscitation Status - Order Detail: 03/12/19 22:15 Resuscitation Status Routine Resuscitation Status: FULL: Full Resuscitation MAR Reviewed: Yes Vital Signs & Weight: Vital Signs (12 hours) Temp Pulse Resp Pulse Ox 03/13/19 07:57 123 H 28 H 100 03/13/19 07:17 96.8 F L 03/13/19 04:14 98.5 F 03/13/19 02:52 114 H 23 H 100 03/12/19 22:53 94 L 03/12/19 22:41 99.8 F H Weight Weight 136 lb Most Recent Monitor Data Heart Rate from ECG 120 NIBP 149/81 NIBP BP-Mean 103 Respiration from ECG 28 SpO2 100 I&O: 03/12/19 03/13/19 03/14/19 06:59 06:59 06:59 Intake Total 360 Output Total 875 Balance -515 Result Diagrams: 03/13/19 05:24 03/13/19 05:23 Phys Exam - Physical Examination Constitutional: NAD HEENT: moist MMs Respiratory: no rales, no rhonchi occ wheezes, poor air movement bilaterally Cardiovascular: RRR, no significant murmur Gastrointestinal: soft, positive bowel sounds Neurological: non-focal, moves all 4 limbs Psychiatric: A&O x 3 Deviation from normal: mood a bit labile, cries easily, but able to calm down after talking Dx/Plan (1) COPD exacerbation Code(s): J44.1 - CHRONIC OBSTRUCTIVE PULMONARY DISEASE W (ACUTE) EXACERBATION Status: Acute (2) Acute and chronic respiratory failure with hypoxia Code(s): J96.21 - ACUTE AND CHRONIC RESPIRATORY FAILURE WITH HYPOXIA Status: Acute (3) HTN (hypertension) Code(s): I10 - ESSENTIAL (PRIMARY) HYPERTENSION Status: Chronic (4) Seizure disorder Code(s): G40.909 - EPILEPSY, UNSP, NOT INTRACTABLE, WITHOUT STATUS EPILEPTICUS Status: Chronic (5) Tobacco abuse Code(s): Z72.0 - TOBACCO USE Status: Chronic - Plan cont current plan of care, continue antibiotics, respiratory therapy, out of bed /ambulate, DVT proph w/lovenox Patient has severe COPD, tired of repeated hospitalizations. Asking to -: talk to hospice. Palliative care consulted. * . - Discharge Day Encounter end time: 12:00
[2019-03-13] MEDS: Enoxaparin Sodium 40 MG/0.4 ML SYRINGE SC SCH (08:50)
[2019-03-13] MEDS: chlordiazePOXIDE HCl 25 MG CAP PO SCH ×3 (08:50→21:00)
[2019-03-13] MEDS ORDERED: Lisinopril 20 MG TAB PO SCH (09:00)
--- NOTE | 2019-03-13 09:29 | CON ---
DATE OF CONSULTATION: HISTORY OF PRESENT ILLNESS: Lang Santana is a 53-year-old gentleman with ongoing tobacco, COPD, presented with increasing dyspnea. He is using neb several times a day. Apparently, he is still smoking. Apparently, he lost his brother 2 times a day. He was placed on noninvasive ventilation, transferred to the MICU. Denies any coughing or chest pain. No wheezing. PAST MEDICAL HISTORY: 1. 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 2. History of hypertension. PAST SURGICAL HISTORY: Clipping of the aneurysm. Colonoscopy. SOCIAL HISTORY: Tobacco, ongoing. Alcohol, former apparently. HOME MEDICATIONS: Supposed to include, 1. Guaifenesin. 2. . 3. Spiriva inhaler. 4. Dilantin 400 a day. 5. Lisinopril 20 nebulizer. 6. Presently getting steroids, antibiotics, neb treatment. IMAGING STUDIES: Chest x-ray was normal. PHYSICAL EXAMINATION: GENERAL: Appears to be in no distress. VITAL SIGNS: His sats are 100% on 3 L, respiratory rate 8, pulse 123, temperature 98, blood pressure 149/81. CHEST: Decreased breath sounds. No wheezing. CARDIAC: Normal S1, S2. No gallops. ABDOMEN: No masses. LABORATORY DATA: Lytes are normal. Drug screen shows barbiturates, benzos, opiates. IMPRESSION: 1. Chronic obstructive pulmonary disease exacerbation. 2. Bronchitis. 3. Ongoing tobacco abuse. 4. Major anxiety. 5. Seizure disorders. PLAN: Switch over to oral antibiotics or prednisone tomorrow. Notify, Dr. Degroot. Pulmonary Critical Care will follow. Otherwise, agree with neb treatments and steroids. Consultation note, 70 minutes, 50% direct patient care. Job ID: [id number]
[2019-03-13] MEDS ORDERED: Acetaminophen/Codeine 30-300mg Tablet PO PRN (13:26)
[2019-03-13] MEDS ORDERED: Temazepam 15 MG CAP PO PRN (20:17)
[2019-03-14] MEDS: methylPREDNISolone Sod Succ 40 MG VIAL IVP SCH ×2 (01:02→06:09)
[2019-03-14] MEDS: chlordiazePOXIDE HCl 25 MG CAP PO SCH (08:55)
[2019-03-14] MEDS: Enoxaparin Sodium 40 MG/0.4 ML SYRINGE SC SCH (08:55)
[2019-03-14 10:39] VITALS: TEMP 99.7
--- NOTE | 2019-03-15 08:55 | DIS ---
DATE OF ADMISSION: 03/12/2019 DATE OF DISCHARGE: 03/14/2019 DISCHARGE DISPOSITION: Home with hospice. DISCHARGE MEDICATIONS: 1. Prednisone taper over 2 weeks. 2. Levaquin 750 daily for 1 week. 3. Protonix 40 mg daily for a month. 4. All other home medications were left unchanged. The patient was seen and examined on the day of discharge. Denies any new complaints. Shortness of breath has significantly improved. The patient is requesting to be discharged since he has to attend his brother's . BRIEF HOSPITAL COURSE: The patient is a 53-year-old male with COPD and chronic respiratory failure, on home oxygen, and presented to the hospital with worsening shortness of breath on March 12, 2019. He was started on noninvasive positive pressure and was monitored in the intermediate care unit. He was started on IV steroids along with IV Levaquin with good improvement in his symptoms. He has been off noninvasive positive-pressure ventilation for more than 36 hours. His D-dimer testing was negative. He was evaluated by Pulmonary Critical Care during this hospitalization. Per the patient request, he will be discharged home. Home Hospice through [facility] has been arranged. FINAL DIAGNOSES: 1. Acute on chronic hypoxic respiratory failure secondary to chronic obstructive pulmonary disease exacerbation. 2. Questionable pneumonia, suspected pneumococcal. 3. Chronic anemia. 4. Seizure disorder. 5. Hypertension. 6. Moderate protein-calorie malnutrition. PLAN: Plan of care was discussed with the patient in detail. He stated understanding. Job ID: [id number]
== END 2019-03-14 12:00 | disposition home or self-care (01) | DRG 190 ==
LOC: ERS 20:35 → IMCU/EMU 22:13
PROVIDERS: ADMIT Hospitalist; ATTEND Hospitalist
DX: J44.1 Chronic obstructive pulmonary disease with (acute) exacerbation (principal); J96.21 Acute and chronic respiratory failure with hypoxia; E44.0 Moderate protein-calorie malnutrition; Z68.1 Body mass index [BMI] 19.9 or less, adult; D53.9 Nutritional anemia, unspecified; I10 Essential (primary) hypertension; R73.9 Hyperglycemia, unspecified; G40.909 Epilepsy, unspecified, not intractable, without status epilepticus; Z72.0 Tobacco use; F41.9 Anxiety disorder, unspecified
CPT/HCPCS: 36415; 71045; 80048; 80053; 80306; 81003; 83735; 83880; 84484; 85025; 85379; 93005; 94640; 94660; 94760; 96365; 96367; 96375; 96376; J1650; J1956; J2060; J2920; J3475; J7611; J7620

== ENCOUNTER 2019-06-24 08:49 | Emergency (ER) | payer OTHER ==
[2019-06-24] MEDS ORDERED: Magnesium 2 GM/50 ML BAG (IN WATER) ONE (09:29)
[2019-06-24] MEDS ORDERED: predniSONE 20 MG TAB ONE (09:29)
--- NOTE | 2019-06-24 09:34 | RAD ---
EXAM: Single view of the chest HISTORY: Shortness of breath and cough COMPARISON: 03/12/2019 FINDINGS: Single view of the chest shows a normal sized cardiomediastinal silhouette. There is no vivian dence of consolidation, mass, or pleural effusion. The bones are unremarkable. IMPRESSION: No evidence of acute cardiopulmonary disease
[2019-06-24 09:37] LABS: Hemoglobin 12.8 g/dL (14.0-18.0); Mean Corpuscular HGB CONC 32.7 g/dL (32.0-36.0); Mean Corpuscular Hemoglobin 33.5 pg (27.0-31.0); RBC Distribution Width 14.3 % (11.5-14.5); Red Blood Cell (RBC) Count 3.84 mill/uL (4.70-6.10); White Blood Cell (WBC) Count 9.1 thou/uL (4.8-10.8)
[2019-06-24 09:59] LABS: ALT (SGPT) 11 U/L (8-55); AST (SGOT) 16 U/L (5-34); Albumin 3.3 g/dL (3.5-5.0); Alkaline Phosphatase 48 U/L (40-150); Anion Gap 14 mmol/L (10-20); BUN (Urea Nitrogen) 11 mg/dL (8.4-25.7); Bilirubin, Total 0.2 mg/dL (0.2-1.2); Calc. Creatinine Clearance 0 mL/min (70-130); Calcium 8.5 mg/dL (7.8-10.44); Carbon Dioxide 25 mmol/L (22-29); Chloride 100 mmol/L (98-107); Estimated GFR-MDRD Greater than 90; Globulin 2.5 g/dL (2.4-3.5); Glucose 96 mg/dL (70-105); Potassium 4.3 mmol/L (3.5-5.1); Protein, Total 5.8 g/dL (6.0-8.3); Sodium 135 mmol/L (136-145)
[2019-06-24 10:02] LABS: #Basophils 0.1 thou/uL (0.0-0.2); #Lymphocytes 1.9 thou/uL (1.20-3.40); #Monocytes 0.7 thou/uL (0.11-0.59); #Neutrophils 6.4 thou/uL (1.40-6.50); %Basophils 0.6 % (0.0-1.0); %Eosinophils 0.3 % (0.0-10.0); %Lymphocytes 21.2 % (21.0-51.0); %Monocytes 7.6 % (0.0-10.0); %Neutrophils 70.3 % (42.0-75.0); Anisocytosis SLIGHT = 6-15 cells (100X) (0-5/hpf); MDiff Complete? YES; Mean Platelet Volume 8.6 fL (7.4-10.4); Ovalocytes SLIGHT = 2-5 cells (100X) (0-1/hpf); Platelet Count 239 thou/uL (130-400); Platelet Morphology Comment Appears Adequate
== END 2019-06-24 11:06 | disposition home or self-care (01) ==
LOC: ERS 08:49
DX: J44.1 Chronic obstructive pulmonary disease with (acute) exacerbation (principal); I10 Essential (primary) hypertension; G40.909 Epilepsy, unspecified, not intractable, without status epilepticus; F17.210 Nicotine dependence, cigarettes, uncomplicated; Z79.899 Other long term (current) drug therapy; Z79.51 Long term (current) use of inhaled steroids
CPT/HCPCS: 71045; 80053; 84484; 85025; 85379; 93005; 94640; 94760; 96365; J3475; J7512; J7620

== ENCOUNTER 2019-09-04 09:33 | Observation (INO) | payer OTHER ==
[2019-09-04 11:53] LABS: Troponin I Less than 0.010 ng/mL (< 0.028)
== END 2019-09-04 12:56 | disposition left against medical advice (07) ==
LOC: ERS 09:33 → ERHOLD 10:45
PROVIDERS: ADMIT Internal Medicine; ATTEND Internal Medicine
DX: J44.1 Chronic obstructive pulmonary disease with (acute) exacerbation (principal); R07.9 Chest pain, unspecified; I10 Essential (primary) hypertension; F17.210 Nicotine dependence, cigarettes, uncomplicated; F17.220 Nicotine dependence, chewing tobacco, uncomplicated; Z79.899 Other long term (current) drug therapy
CPT/HCPCS: 36415; 93005

== ENCOUNTER 2022-07-27 11:06 | Emergency (ER) | payer OTHER ==
[~2022-07-27 11:06] MED LIST: Iopamidol-370 76% 500 ML 1 ML ONE
[2022-07-27 12:23] LABS: #Basophils 0.1 thou/uL (0.0-0.2); #Lymphocytes 1.4 thou/uL (1.20-3.40); #Monocytes 0.6 thou/uL (0.11-0.59); #Neutrophils 2.7 thou/uL (1.40-6.50); %Basophils 1.1 % (0.0-1.0); %Eosinophils 0.1 % (0.0-10.0); %Lymphocytes 28.5 % (21.0-51.0); %Monocytes 12.6 % (0.0-10.0); %Neutrophils 57.6 % (42.0-75.0); Hemoglobin 10.7 g/dL (14.0-18.0); Mean Corpuscular HGB CONC 32.7 g/dL (32.0-36.0); Mean Corpuscular Hemoglobin 33.9 pg (27.0-31.0); Mean Platelet Volume 8.6 fL (7.4-10.4); Platelet Count 180 thou/uL (130-400); RBC Distribution Width 13.8 % (11.5-14.5); Red Blood Cell (RBC) Count 3.15 mill/uL (4.70-6.10); White Blood Cell (WBC) Count 4.8 thou/uL (4.8-10.8)
[2022-07-27] MEDS ORDERED: Ondansetron PF 4 MG/2 ML Vial ONE (12:25)
[2022-07-27] MEDS ORDERED: methylPREDNISolone Sod Succ/PF 125 MG/2 ML VIAL ONE (12:25)
[2022-07-27] MEDS ORDERED: Lorazepam 2 MG/ML VIAL ONE (12:27)
[2022-07-27 12:36] LABS: ALT (SGPT) 24 U/L (8-55); AST (SGOT) 18 U/L (5-34); Albumin 3.6 g/dL (3.5-5.0); Alkaline Phosphatase 54 U/L (40-110); Anion Gap 12 mmol/L (10-20); BUN (Urea Nitrogen) 7 mg/dL (8.4-25.7); Bilirubin, Total 0.2 mg/dL (0.2-1.2); Calc. Creatinine Clearance 0 mL/min (70-130); Calcium 8.5 mg/dL (7.8-10.44); Carbon Dioxide 28 mmol/L (22-29); Chloride 100 mmol/L (98-107); Estimated GFR 112; Globulin 2.5 g/dL (2.4-3.5); Glucose 96 mg/dL (70-105); Lipase 134 U/L (8-78); Potassium 4.2 mmol/L (3.5-5.1); Protein, Total 6.1 g/dL (6.0-8.3); Sodium 136 mmol/L (136-145)
[2022-07-27 13:17] LABS: Bilirubin Negative (Negative); Blood, Urine Negative (Negative); Clarity Clear (Clear); Glucose, Urine (Dipstick) Normal (Negative); Ketone, Urine Negative (Negative); Leukocyte Negative Leu/uL (Negative); Nitrite Negative (Negative); Protein, Urine (Dipstick) Negative (Neg-Trace); Specific Gravity, Urine 1.014 (1.002-1.036); Urobilinogen Normal mg/dL (Less than 2); pH, Urine 6.5 (5.0-9.0)
== END 2022-07-27 18:15 | disposition home or self-care (01) ==
LOC: ERS 11:06
DX: R10.9 Unspecified abdominal pain (principal); J44.1 Chronic obstructive pulmonary disease with (acute) exacerbation; I10 Essential (primary) hypertension; G40.909 Epilepsy, unspecified, not intractable, without status epilepticus; Z79.899 Other long term (current) drug therapy
CPT/HCPCS: 36415; 71045; 74177; 80053; 81003; 83605; 83690; 83880; 84484; 85025; 93005; 94640; 96361; 96374; 96375; J2060; J2405; J2930; J7620; Q9967